=== PATIENT | female | born 1990 | race Caucasian/White ===

== ENCOUNTER 2017-01-04 11:01 | Emergency (ER) | payer OTHER ==
[2017-01-04 11:01] VITALS: BMI 28.5
[2017-01-04 11:08] VITALS: O2SAT 99
--- NOTE | 2017-01-04 11:54 | ED PDOC ---
Arrival/HPI - General Historian: Patient <PERRY NAVA - Last Filed: 01/04/17 13:52> <Ghanshyam Lacy - Last Filed: 01/04/17 16:17> - General Chief Complaint: Seizure Time Seen by Provider: 01/04/17 11:05 - History of Present Illness Narrative History of Present Illness (Text): 01/04/17 11:29 Ms. Ho is a 26 year old female with a past medical history of seizure who was brought into the emergency department by EMS for seizure activity. Pt was reportedly on bus at onset of seizure activity. EMS reports being alerted by business solutions architect who had stopped near the EMS station of a person seizing. EMS entered the bus and witnessed the patient actively seizing for 30 seconds. They then brought the patient into the ED. No other witnesses were identified for the patient's seizure. When speaking with the patient she indicates she has poor recall of the events leading up to and after her seizure. She states she does take Depakote BID on a regular basis and admits not missing a dose. Pt denies fever, vomit, chest pain, shortness of breath. She admits her most recent seizure was 3 years ago. She does not currently have a neurologist. (PERRY NAAV) Past Medical History - Provider Review Nursing Documentation Reviewed: Yes - Infectious Disease Hx of Infectious Diseases: None - Reproductive Menopause: No - Past Medical History Past Medical History: No Previous - Neurological Hx Seizures: Yes - Psychiatric Hx Depression: No Hx Emotional Abuse: No Hx Physical Abuse: No Hx Substance Use: No - Past Surgical History Past Surgical History: No Previous - Suicidal Assessment Feels Threatened In Home Enviroment: No <PERRY NAVA - Last Filed: 01/04/17 13:52> Family/Social History - Physician Review Nursing Documentation Reviewed: Yes Family/Social History: No Known Family HX Smoking Status: Unknown If Ever Smoked Hx Alcohol Use: No Hx Substance Use: No <PERRY NAVA - Last Filed: 01/04/17 13:52> Allergies/Home Meds <PERRY NAVA - Last Filed: 01/04/17 13:52> <Ghanshyam Lacy - Last Filed: 01/04/17 16:17> Allergies/Adverse Reactions: Allergies No Known Allergies Allergy (Verified 11/08/13 16:11) Home Medications: Home Meds Medication Instructions Recorded Confirmed Divalproex [Depakote] 500 mg PO DAILY 01/04/17 01/04/17 Review of Systems - Review of Systems Constitutional: Fatigue. absent: Fevers Eyes: absent: Vision Changes ENT: absent: Hearing Changes Respiratory: absent: SOB, Cough Cardiovascular: absent: Chest Pain, Palpitations Gastrointestinal: absent: Abdominal Pain, Stool Changes Musculoskeletal: absent: Neck Pain, Myalgias Skin: absent: Rash, Pruritis Neurological: absent: Headache, Dizziness Psychiatric: absent: Anxiety, Depression <PERRY NAVA - Last Filed: 01/04/17 13:52> Physical Exam Temperature: Afebrile Blood Pressure: Normal Pulse: Tachycardic Respiratory Rate: Normal Appearance: Positive for: Well-Appearing Pain Distress: None Mental Status: Positive for: Confused (Alert and oriented to self and year) Finger Stick Blood Glucose: 172 - Systems Exam Head: Present: Normocephalic, Swelling (around left eye ) Extroacular Muscles: Present: EOMI Conjunctiva: Present: Normal Mouth: Present: Moist Mucous Membranes Neck: Present: Normal Range of Motion Respiratory/Chest: Present: Clear to Auscultation, Good Air Exchange. No: Respiratory Distress Cardiovascular: Present: Regular Rate and Rhythm, Normal S1, S2. No: Murmurs Abdomen: Present: Normal Bowel Sounds. No: Tenderness, Distention Upper Extremity: Present: Normal Inspection, NORMAL PULSES, Neurovascularly Intact. No: Edema Lower Extremity: Present: Normal Inspection, NORMAL PULSES, Neurovascularly Intact Neurological: Present: GCS=15, CN II-XII Intact Skin: Present: Warm, Dry Psychiatric: Present: Alert <PERRY NAVA - Last Filed: 01/04/17 13:52> Medical Decision Making - EKG Interpretation Interpreted by ED Physician: Yes Type: 12 lead EKG <PERRY NAVA - Last Filed: 01/04/17 13:52> <Ghanshyam Lacy - Last Filed: 01/04/17 16:17> ED Course and Treatment: 01/04/17 11:57 Impression: Ms. Ho is a 26 year old female with pmh sig for seizure disorder who presents status post seizure with in 1 hour prior to arrival. Differential Diagnosis included but are not limited to: - Generalized seizure - Plan: - Labs: CBC, CMP, Mg, Phos, Urinalysis, test, - Imaging: CXR -- Reassess and disposition Progress Notes: (PERRY NAVA) In agreement with resident note. Patient was seen and evaluated with resident, came up with plan and treatment together. A 26 year old female s/p seizure episode. On physical exam, patient awake, alert. States she is feeling better now and less drowsy. She has swelling around both eyes but slightly more on L but denies any vision change or pain. No tenderness over maxilla, temporal, or frontal bones. (Regino,Ghanshyam Ascencio) - Lab Interpretations Lab Results: 01/04/17 11:20 01/04/17 11:20 Lab Results 01/04/17 12:34: Urine Color Light red, Urine Appearance Sl cloudy, Urine pH 6.0 , Ur Specific [place] 1.025, Urine Protein Trace H, Urine Glucose (UA) Negative , Urine Ketones Trace H, Urine Blood Large H, Urine Nitrate Negative, Urine Bilirubin Negative, Urine Urobilinogen 0.2, Ur Leukocyte Esterase Trace H, Urine RBC Tntc, Urine WBC 0 - 2, Ur Epithelial Cells 0 - 2, Urine Bacteria Few 01/04/17 11:20: Sodium 141, Potassium 3.7, Chloride 105, Carbon Dioxide 20 L, Anion Gap 20, BUN 16, Creatinine 0.6, Est GFR ( Amer) > 60, Est GFR (Non- Af Amer) > 60, Random Glucose 111 H, Calcium 9.6, Phosphorus 3.9, Magnesium 1.9 , Total Bilirubin 0.3, AST 19, ALT 12, Alkaline Phosphatase 27 L, Total Protein 7.4, Albumin 4.4, Globulin 3.1, Albumin/Globulin Ratio 1.4 01/04/17 11:20: WBC 4.7, RBC 4.36, Hgb 12.2, Hct 37.0, MCV 84.9, MCH 28.0, MCHC 33.0, RDW 15.2 H, Plt Count 236, MPV 11.5 H, Neutrophils % (Manual) 32 L, Lymphocytes % (Manual) 56 H, Atypical Lymphs % 4 H, Monocytes % (Manual) 5, Eosinophils % (Manual) 1, Platelet Evaluation Normal - RAD Interpretation Radiology Orders: 01/04/17 11:27 X-RAY [CHEST PORTABLE] [RAD] Stat - EKG Interpretation EKG Interpretation (Text): 01/04/17 12:16 NSR, Sinus tachycardia (PERRY NAVA) - PA / SUPERVISOR COMPONENT [employer]SEMBLER / Resident Statement MD/DO has reviewed & agrees with the documentation as recorded. MD/DO has examined the patient and agrees with the treatment plan. <PERRY NAVA - Last Filed: 01/04/17 13:52> - Scribe Statement The provider has reviewed the documentation as recorded by the Scribe <Ghanshyam Lacy - Last Filed: 01/04/17 16:17> - Scribe Statement Hollis Sahu All medical record entries made by the Scribe were at my direction and personally dictated by me. I have reviewed the chart and agree that the record accurately reflects my personal performance of the history, physical exam, medical decision making, and the department course for this patient. I have also personally directed, reviewed, and agree with the discharge instructions and disposition. (Ghanshyam Lacy) Disposition/Present on Arrival - Present on Arrival Any Indicators Present on Arrival: No History of DVT/PE: No History of Uncontrolled Diabetes: No Urinary Catheter: No History of Decub. Ulcer: No History Surgical Site Infection Following: None - Disposition Have Diagnosis and Disposition been Completed?: Yes Disposition Time: 13:45 <PERRY NAVA - Last Filed: 01/04/17 13:52> <Ghanshyam Lacy - Last Filed: 01/04/17 16:17> - Disposition Diagnosis: Seizure Disposition: HOME/ ROUTINE Patient Problems: Current Active Problems Problem Status Onset Seizure Acute Condition: IMPROVED Discharge Instructions (ExitCare): Epilepsy (DC) Additional Instructions: Ms. Ho, thank you for letting us take care of you today. Your provider was Dr. Nava. You were treated for seizure. The emergency medical care you received today was directed at your acute symptoms. If you were prescribed any medication, please fill it and take as directed. It may take several days for your symptoms to resolve. Return to the Emergency Department if your symptoms worsen, do not improve, or if you have any other problems. Please contact your doctor or call one of the physicians/clinics you have been referred to that are listed on the Patient Visit Information form that is included in your discharge packet. Bring any paperwork you were given at discharge with you along with any medications you are taking to your follow up visit. Our treatment cannot replace ongoing medical care by a primary care provider (PCP) outside of the emergency department. Thank you for allowing the [email or web address] team to be part of your care today. Please make an appointment and establish with a neurologist. Follow up with your Primary Care physician. Referrals: PCP,NO [Primary Care Provider] - Follow up with primary
[2017-01-04 12:33] LABS: HEMOGLOBIN 12.2 gm/dL (12.0-16.0); MEAN CELL VOLUME 84.9 fL (80.0-105.0); MEAN PLATELET VOLUME 11.5 fl (7.0-11.0); PLATELET COUNT 236 10^3/uL (120.0-450.0); RBC 4.36 10^6/uL (3.5-6.1); RED CELL DISTRIBUTION WIDTH 15.2 % (11.5-14.5); WHITE BLOOD COUNT 4.7 10^3/ul (4.5-11.0)
[2017-01-04 12:39] LABS: URINE BILIRUBIN NEGATIVE (NEGATIVE); URINE BLOOD LARGE (NEGATIVE); URINE GLUCOSE (UA) NEGATIVE (NEGATIVE); URINE LEUKOCYTE ESTERASE TRACE Leu/uL (NEGATIVE); URINE NITRATE NEGATIVE (NEGATIVE); URINE PROTEIN TRACE mg/dL (<30 mg/dL); URINE UROBILINOGEN 0.2 E.U./dL (<1 E.U./dL)
[2017-01-04 12:41] LABS: ALB/GLOB RATIO 1.4 (1.1-1.8); ALBUMIN 4.4 g/dL (3.0-4.8); ALT/SGPT 12 U/L (7-56); AST/SGOT 19 U/L (15-39); BLOOD UREA NITROGEN 16 mg/dL (7-21); CALCIUM 9.6 mg/dL (8.4-10.5); GFR AFRICAN-AMERICAN > 60; GFR NON-AFRICAN AMERICAN > 60; MAGNESIUM 1.9 mg/dL (1.7-2.2)
[2017-01-04 12:45] LABS: URINE APPEARANCE SL CLOUDY (CLEAR); URINE COLOR LIGHT RED (YELLOW)
[2017-01-04 12:52] LABS: URINE EPITHELIAL CELLS 0 - 2 /hpf (0-5); URINE RBC TNTC /hpf (0-2); URINE WBC 0 - 2 /hpf (0-6)
[2017-01-04 12:53] LABS: URINE BACTERIA FEW (NEG)
[2017-01-04 13:17] LABS: ATYPICAL LYMPHOCYTE 4 % (0.0-0.0); EOSINOPHIL 1 % (0.0-3.0); LYMPHOCYTE 56 % (22.0-35.0); MONOCYTE 5 % (1.0-6.0); NEUTROPHIL 32 % (50.0-70.0); PLATELET ESTIMATE NORMAL (NORMAL)
--- NOTE | 2017-01-04 13:48 | RAD ---
HISTORY: seizure COMPARISON: No prior. FINDINGS: LUNGS: No active pulmonary disease. PLEURA: No significant pleural effusion identified, no pneumothorax apparent. CARDIOVASCULAR: Normal. OSSEOUS STRUCTURES: No significant abnormalities. VISUALIZED UPPER ABDOMEN: Normal. OTHER FINDINGS: None. IMPRESSION: No active disease.
--- NOTE | 2017-01-04 14:23 | CARD ---
APPROVED REPORT EKG Measurement Heart [id number] <Conclusion> Sinus tachycardia Otherwise normal ECG
[2017-01-04 14:40] VITALS: TEMP 97.7
[2017-01-04 14:43] VITALS: RESP 16
[2017-01-04 15:17] VITALS: BP 119/77; PULSE 78
== END 2017-01-04 15:17 | disposition home or self-care (01) ==
LOC: ED 11:01
DX: G40.909 Epilepsy, unspecified, not intractable, without status epilepticus (principal)